=== PATIENT | female | born 1940 | race Caucasian/White ===

== ENCOUNTER 2020-02-22 15:46 | Inpatient (IN) ==
[2020-02-22] MEDS: Apixaban 5 MG TABLET PO SCH (20:46)
[2020-02-22] MEDS ORDERED: QUEtiapine Fumarate 25 MG TABLET PO SCH (21:00)
[2020-02-22] MEDS ORDERED: *HR* LORazepam 2 MG/ML VIAL IM STA (22:17)
[2020-02-23] MEDS ORDERED: Haloperidol Lactate 5 MG/ML VIAL IVP ONE (03:51)
[2020-02-23] MEDS: Ondansetron ODT 4 MG TAB.RAPDIS SL PRN (09:02)
[2020-02-23] MEDS: Apixaban 5 MG TABLET PO SCH ×2 (09:20→19:43)
[2020-02-23] MEDS: Furosemide 40 MG TABLET PO SCH ×2 (09:20→14:30)
[2020-02-23] MEDS: DilTIAZem CD (24hr) 240 MG CAP.ER.24H PO SCH (09:20)
[2020-02-23] MEDS: Metoprolol XL (24 HR) Succ 50 MG TAB.ER.24H PO SCH ×2 (09:20→14:35)
[2020-02-23 09:32] LABS: Basophils # 0.1 K/mcL (0.0-0.2); Basophils % 0.4 %; Hematocrit 47.1 % (35.3-44.9); Hemoglobin 15.6 g/dL (11.5-15.4); Immature Granulocytes % 3.5 % (0-4); Lymphocytes % 5.1 %; Mean Corpuscular HGB Conc 33.1 g/dL (31.6-35.5); Mean Corpuscular Hemoglobin 27.8 pg (28.0-33.3); Monocytes # 1.4 K/mcL (0.0-1.3); Monocytes % 7.6 %; Neutrophils # 15.6 K/mcL (1.6-8.9); Platelet Count 453 K/mcL (140-400); Red Blood Count 5.61 M/mcL (3.82-4.97); Red Cell Distribution Width 14.5 % (11.5-14.5); Segmented Neutrophils % 83.4 %; White Blood Count 18.7 K/mcL (4.3-11.1)
[2020-02-23 09:44] LABS: Alanine Aminotransferase 118 Units/L (7-52); Albumin 3.6 g/dL (3.5-5.7); Albumin/Globulin Ratio 1.3 (1.1-2.2); Alkaline Phosphatase 100 Units/L (34-104); Aspartate Amino Transferase 45 Units/L (13-39); BUN/Creatinine Ratio 30 (6-26); Blood Urea Nitrogen 23 mg/dL (8-23); Calcium 8.9 mg/dL (8.6-10.3); Carbon Dioxide 30 mEq/L (23-29); Chloride 93 mEq/L (98-107); Globulin 2.8 g/dL (2.4-3.5); Glucose 212 mg/dL (70-105); Magnesium 2.1 mg/dL (1.6-2.6); Osmolality,Calculated 286 (280-300); Potassium 4.1 mEq/L (3.5-5.1); Sodium 133 mEq/L (136-145); Total Protein 6.4 g/dL (6.4-8.9); eGFR For African Americans > 60 (> 60); eGFR For Non-African Americans > 60 (> 60)
[2020-02-23] MEDS ORDERED: *HR* Dextrose 50 % in Water (Vial) 50 ML VIAL IVP PRN (09:51)
[2020-02-23] MEDS ORDERED: Dextrose Gel 15 GM/37.5 ML TUBE PO PRN ×2 (09:51)
[2020-02-23] MEDS ORDERED: D5% in Water 1,000 ML IVC PRN (09:51)
[2020-02-23] MEDS: Insulin LISPRO 300 UNITS/3 ML VIAL SUBQ SCH ×3 (11:48→21:40)
[2020-02-23] MEDS: levoFLOXacin 750 MG TABLET PO SCH (14:29)
[2020-02-23] MEDS: dexAMETHasone 4 MG TABLET PO SCH (14:30)
[2020-02-23] MEDS ORDERED: Nystatin Cream 15 GM TUBE TP SCH (15:00)
[2020-02-23] MEDS: QUEtiapine Fumarate 25 MG TABLET PO SCH (19:43)
[2020-02-23] MEDS: Nystatin POWDER 30 GM BOTTLE TP SCH (19:45)
[2020-02-23] MEDS ORDERED: *HR* LORazepam 2 MG/ML VIAL IVP ONE (23:37)
[2020-02-24 06:24] LABS: Hematocrit 47.9 % (35.3-44.9); Hemoglobin 15.4 g/dL (11.5-15.4); Mean Corpuscular HGB Conc 32.2 g/dL (31.6-35.5); Mean Corpuscular Volume 87.1 fL (83.0-100.0); Mean Platelet Volume 10.4 fL (9.4-12.4); Platelet Count 356 K/mcL (140-400); Red Cell Distribution Width 14.8 % (11.5-14.5); White Blood Count 13.2 K/mcL (4.3-11.1)
[2020-02-24 07:16] LABS: Alanine Aminotransferase 118 Units/L (7-52); Albumin 3.4 g/dL (3.5-5.7); Albumin/Globulin Ratio 1.3 (1.1-2.2); Alkaline Phosphatase 98 Units/L (34-104); Aspartate Amino Transferase 41 Units/L (13-39); BUN/Creatinine Ratio 32 (6-26); Bilirubin,Total 0.9 mg/dL (0.3-1.0); Blood Urea Nitrogen 24 mg/dL (8-23); Calcium 8.8 mg/dL (8.6-10.3); Carbon Dioxide 24 mEq/L (23-29); Chloride 94 mEq/L (98-107); Globulin 2.7 g/dL (2.4-3.5); Glucose 214 mg/dL (70-105); Osmolality,Calculated 284 (280-300); Potassium 4.5 mEq/L (3.5-5.1); Sodium 132 mEq/L (136-145); Total Protein 6.1 g/dL (6.4-8.9); eGFR For African Americans > 60 (> 60); eGFR For Non-African Americans > 60 (> 60)
[2020-02-24] MEDS: Insulin LISPRO 300 UNITS/3 ML VIAL SUBQ SCH ×4 (08:48→20:24)
[2020-02-24] MEDS: Apixaban 5 MG TABLET PO SCH ×2 (08:50→20:17)
[2020-02-24] MEDS: levoFLOXacin 750 MG TABLET PO SCH (08:50)
[2020-02-24] MEDS: Nystatin POWDER 30 GM BOTTLE TP SCH ×2 (08:50→20:18)
[2020-02-24] MEDS: DilTIAZem CD (24hr) 240 MG CAP.ER.24H PO SCH (08:50)
[2020-02-24] MEDS: dexAMETHasone 4 MG TABLET PO SCH (08:51)
[2020-02-24] MEDS: Metoprolol XL (24 HR) Succ 50 MG TAB.ER.24H PO SCH (08:51)
[2020-02-24] MEDS: Furosemide 40 MG TABLET PO SCH ×2 (08:51→16:40)
[2020-02-24 09:57] LABS: Bilirubin,Urine Moderate (Negative); Blood,Urine Large (Negative); Clarity,Urine Cloudy (Clear); Color,Urine Red (Yellow); Glucose,Urine (UA) Normal (Normal); Ketones,Urine 15 mg/dL (Negative); Leukocyte Esterase,Urine Trace (Negative); Nitrite,Urine Negative (Negative); PH,Urine 5.5 pH Units (5.0-8.0); Protein,Urine >=300 mg/dL (Neg-Trace); Specific Gravity,Urine 1.015 (1.010-1.025); Urobilinogen,Urine Normal (Normal)
[2020-02-24 09:58] LABS: Bacteria,Urine Moderate per hpf (None-Few); Budding Yeast,Urine Moderate per hpf (None Seen); RBC,Urine TNTC per hpf (0-3); WBC,Urine TNTC per hpf (0-3)
[2020-02-24 10:50] LABS: C-Reactive Protein < 5 mg/L (Less than 10)
[2020-02-24 11:31] LABS: Ferritin 400 ng/mL (10-120)
[2020-02-24] MEDS: *HR* LORazepam 1 MG TABLET PO PRN (15:02)
[2020-02-24] MEDS: QUEtiapine Fumarate 25 MG TABLET PO SCH (20:17)
[2020-02-25] MEDS: Insulin LISPRO 300 UNITS/3 ML VIAL SUBQ SCH ×4 (09:55→19:35)
[2020-02-25] MEDS: *HR* LORazepam 1 MG TABLET PO PRN ×3 (09:56→22:57)
[2020-02-25] MEDS: DilTIAZem CD (24hr) 240 MG CAP.ER.24H PO SCH (09:56)
[2020-02-25] MEDS: levoFLOXacin 750 MG TABLET PO SCH (09:56)
[2020-02-25] MEDS: Metoprolol XL (24 HR) Succ 50 MG TAB.ER.24H PO SCH (09:56)
[2020-02-25] MEDS: dexAMETHasone 4 MG TABLET PO SCH (09:56)
[2020-02-25] MEDS: Apixaban 5 MG TABLET PO SCH ×2 (09:56→19:35)
[2020-02-25] MEDS: Furosemide 40 MG TABLET PO SCH ×2 (09:56→16:53)
[2020-02-25] MEDS: Nystatin POWDER 30 GM BOTTLE TP SCH ×2 (10:02→20:07)
[2020-02-25] MEDS: QUEtiapine Fumarate 25 MG TABLET PO SCH (19:35)
[2020-02-26] MEDS: *HR* LORazepam 1 MG TABLET PO PRN ×3 (09:15→20:46)
[2020-02-26] MEDS: Furosemide 40 MG TABLET PO SCH ×2 (09:15→17:16)
[2020-02-26] MEDS: Metoprolol XL (24 HR) Succ 50 MG TAB.ER.24H PO SCH (09:15)
[2020-02-26] MEDS: dexAMETHasone 4 MG TABLET PO SCH (09:15)
[2020-02-26] MEDS: levoFLOXacin 750 MG TABLET PO SCH (09:15)
[2020-02-26] MEDS: DilTIAZem CD (24hr) 240 MG CAP.ER.24H PO SCH (09:16)
[2020-02-26] MEDS: Apixaban 5 MG TABLET PO SCH ×2 (09:16→20:46)
[2020-02-26] MEDS: Insulin LISPRO 300 UNITS/3 ML VIAL SUBQ SCH ×4 (09:17→20:46)
[2020-02-26] MEDS: Nystatin POWDER 30 GM BOTTLE TP SCH ×2 (09:17→20:51)
[2020-02-26] MEDS: Acetaminophen 325 MG TABLET PO PRN (10:30)
[2020-02-26] MEDS ORDERED: *HR* LORazepam 1 MG TABLET PO ONE (14:19)
[2020-02-26] MEDS: QUEtiapine Fumarate 25 MG TABLET PO SCH (20:46)
[2020-02-27] MEDS: levoFLOXacin 750 MG TABLET PO SCH (09:06)
[2020-02-27] MEDS: Furosemide 40 MG TABLET PO SCH ×2 (09:06→16:40)
[2020-02-27] MEDS: Apixaban 5 MG TABLET PO SCH (09:06)
[2020-02-27] MEDS: DilTIAZem CD (24hr) 240 MG CAP.ER.24H PO SCH (09:06)
[2020-02-27] MEDS: Insulin LISPRO 300 UNITS/3 ML VIAL SUBQ SCH ×4 (09:07→20:38)
[2020-02-27] MEDS: Metoprolol XL (24 HR) Succ 50 MG TAB.ER.24H PO SCH (09:07)
[2020-02-27] MEDS: Nystatin POWDER 30 GM BOTTLE TP SCH ×2 (09:08→20:39)
[2020-02-27] MEDS: *HR* LORazepam 1 MG TABLET PO PRN ×2 (10:28→16:39)
[2020-02-27 11:27] LABS: Basophils # 0.1 K/mcL (0.0-0.2); Basophils % 0.3 %; Hematocrit 43.3 % (35.3-44.9); Hemoglobin 14.5 g/dL (11.5-15.4); Immature Granulocytes % 1.6 % (0-4); Lymphocytes # 1.2 K/mcL (0.6-4.6); Lymphocytes % 5.4 %; Mean Corpuscular HGB Conc 33.5 g/dL (31.6-35.5); Mean Corpuscular Hemoglobin 27.9 pg (28.0-33.3); Mean Corpuscular Volume 83.3 fL (83.0-100.0); Mean Platelet Volume 10.2 fL (9.4-12.4); Monocytes # 1.6 K/mcL (0.0-1.3); Monocytes % 7.3 %; Neutrophils # 18.5 K/mcL (1.6-8.9); Platelet Count 290 K/mcL (140-400); Red Cell Distribution Width 14.6 % (11.5-14.5); Segmented Neutrophils % 85.4 %; White Blood Count 21.7 K/mcL (4.3-11.1)
[2020-02-27 11:41] LABS: Albumin 3.2 g/dL (3.5-5.7); Albumin/Globulin Ratio 1.4 (1.1-2.2); BUN/Creatinine Ratio 33 (6-26); Bilirubin,Direct 0.3 mg/dL (0.0-0.2); Bilirubin,Indirect 0.8 mg/dL (0.0-1.0); Bilirubin,Total 1.1 mg/dL (0.3-1.0); Blood Urea Nitrogen 27 mg/dL (8-23); Calcium 8.5 mg/dL (8.6-10.3); Carbon Dioxide 28 mEq/L (23-29); Chloride 92 mEq/L (98-107); Globulin 2.3 g/dL (2.4-3.5); Glucose 220 mg/dL (70-105); Osmolality,Calculated 284 (280-300); Potassium 3.2 mEq/L (3.5-5.1); Sodium 131 mEq/L (136-145); Total Protein 5.5 g/dL (6.4-8.9); eGFR For African Americans > 60 (> 60); eGFR For Non-African Americans > 60 (> 60)
[2020-02-27 12:12] LABS: Bilirubin,Urine Negative (Negative); Blood,Urine Large (Negative); Clarity,Urine Slightly Cloudy (Clear); Color,Urine Pink (Yellow); Glucose,Urine (UA) Normal (Normal); Ketones,Urine Negative (Negative); Leukocyte Esterase,Urine Moderate (Negative); Nitrite,Urine Negative (Negative); Protein,Urine 30 mg/dL (Neg-Trace); Specific Gravity,Urine 1.015 (1.010-1.025); Urobilinogen,Urine Normal (Normal)
[2020-02-27 12:19] LABS: Bacteria,Urine Few per hpf (None-Few); Budding Yeast,Urine Moderate per hpf (None Seen); Mucus,Urine Few per lpf (None-Few); RBC,Urine 50-100 per hpf (0-3)
[2020-02-27] MEDS: QUEtiapine Fumarate 25 MG TABLET PO SCH (20:38)
[2020-02-28 06:57] LABS: Basophils # 0.1 K/mcL (0.0-0.2); Basophils % 0.3 %; Eosinophils % 0.1 %; Immature Granulocytes % 1.8 % (0-4); Lymphocytes # 1.1 K/mcL (0.6-4.6); Lymphocytes % 6.5 %; Mean Corpuscular HGB Conc 32.6 g/dL (31.6-35.5); Mean Corpuscular Hemoglobin 27.5 pg (28.0-33.3); Mean Corpuscular Volume 84.3 fL (83.0-100.0); Mean Platelet Volume 11.1 fL (9.4-12.4); Monocytes # 1.9 K/mcL (0.0-1.3); Monocytes % 10.8 %; Neutrophils # 14.1 K/mcL (1.6-8.9); Platelet Count 276 K/mcL (140-400); Red Cell Distribution Width 14.7 % (11.5-14.5); Segmented Neutrophils % 80.5 %; White Blood Count 17.5 K/mcL (4.3-11.1)
[2020-02-28 07:15] LABS: BUN/Creatinine Ratio 29 (6-26); Blood Urea Nitrogen 23 mg/dL (8-23); Calcium 8.3 mg/dL (8.6-10.3); Carbon Dioxide 31 mEq/L (23-29); Chloride 94 mEq/L (98-107); Glucose 165 mg/dL (70-105); Osmolality,Calculated 283 (280-300); Potassium 3.4 mEq/L (3.5-5.1); Sodium 133 mEq/L (136-145); eGFR For African Americans > 60 (> 60); eGFR For Non-African Americans > 60 (> 60)
[2020-02-28] MEDS: Insulin LISPRO 300 UNITS/3 ML VIAL SUBQ SCH ×4 (08:28→20:50)
[2020-02-28] MEDS: Nystatin POWDER 30 GM BOTTLE TP SCH ×2 (08:29→20:52)
[2020-02-28] MEDS: levoFLOXacin 750 MG TABLET PO SCH (08:29)
[2020-02-28] MEDS: *HR* LORazepam 1 MG TABLET PO PRN (08:29)
[2020-02-28] MEDS: Furosemide 40 MG TABLET PO SCH ×2 (08:29→16:00)
[2020-02-28] MEDS: Metoprolol XL (24 HR) Succ 50 MG TAB.ER.24H PO SCH (08:29)
[2020-02-28] MEDS: DilTIAZem CD (24hr) 240 MG CAP.ER.24H PO SCH (08:29)
[2020-02-28 10:42] LABS: Adenovirus F 40/41 PCR Not detected (Not detect); Astrovirus PCR Not detected (Not detect); C.difficile Toxin A/B Gene PCR Not detected (Not detect); Campylobacter by PCR Not detected (Not detect); Cryptosporidium by PCR Not detected (Not detect); Cyclospora cayetanensis PCR Not detected (Not detect); E. coli O157 by PCR Not detected (Not detect); Entamoeba histolytica PCR Not detected (Not detect); Enteroaggregative E.coli(EAEC) Not detected (Not detect); Enteropathogenic E.coli(EPEC) Not detected (Not detect); Enterotoxigenic E.coli (ETEC) Not detected (Not detect); Giardia lamblia PCR Not detected (Not detect); Norovirus GI/GII PCR Not detected (Not detect); Plesiomonas shigelloides PCR Not detected (Not detect); Rotavirus A PCR Not detected (Not detect); Salmonella PCR Not detected (Not detect); Sapovirus PCR Not detected (Not detect); Shig/EnteroinvasiveE coli EIEC Not detected (Not detect); Shigalike tox-prod E coli STEC Not detected (Not detect); Vibrio PCR Not detected (Not detect); Vibrio cholerae PCR Not detected (Not detect); Yersinia enterocolitica PCR Not detected (Not detect)
[2020-02-28] MEDS: Ondansetron ODT 4 MG TAB.RAPDIS SL PRN (16:00)
[2020-02-28] MEDS: Apixaban 5 MG TABLET PO SCH (20:50)
[2020-02-28] MEDS: QUEtiapine Fumarate 25 MG TABLET PO SCH (20:52)
[2020-02-29] MEDS: *HR* LORazepam 1 MG TABLET PO PRN ×2 (02:47→22:49)
[2020-02-29 07:40] LABS: Basophils # 0.1 K/mcL (0.0-0.2); Basophils % 0.2 %; Eosinophils # 0.1 K/mcL (0.0-0.6); Eosinophils % 0.2 %; Hematocrit 41.4 % (35.3-44.9); Hemoglobin 13.7 g/dL (11.5-15.4); Immature Granulocytes % 1.2 % (0-4); Lymphocytes # 0.8 K/mcL (0.6-4.6); Mean Corpuscular HGB Conc 33.1 g/dL (31.6-35.5); Mean Corpuscular Hemoglobin 28.1 pg (28.0-33.3); Mean Corpuscular Volume 84.8 fL (83.0-100.0); Mean Platelet Volume 10.3 fL (9.4-12.4); Monocytes % 6.9 %; Platelet Count 202 K/mcL (140-400); Red Blood Count 4.88 M/mcL (3.82-4.97); Red Cell Distribution Width 14.8 % (11.5-14.5); Segmented Neutrophils % 88.5 %; White Blood Count 26.7 K/mcL (4.3-11.1)
[2020-02-29 07:48] LABS: Monocytes # 1.8 K/mcL (0.0-1.3); Neutrophils # 23.6 K/mcL (1.6-8.9)
[2020-02-29 08:03] LABS: BUN/Creatinine Ratio 22 (6-26); Blood Urea Nitrogen 17 mg/dL (8-23); Calcium 8.1 mg/dL (8.6-10.3); Carbon Dioxide 29 mEq/L (23-29); Chloride 93 mEq/L (98-107); Glucose 192 mg/dL (70-105); Osmolality,Calculated 277 (280-300); Potassium 3.6 mEq/L (3.5-5.1); Sodium 130 mEq/L (136-145); eGFR For African Americans > 60 (> 60); eGFR For Non-African Americans > 60 (> 60)
[2020-02-29 08:28] LABS: Platelet Estimate Normal (Normal)
[2020-02-29] MEDS: Nystatin POWDER 30 GM BOTTLE TP SCH ×2 (08:43→20:20)
[2020-02-29] MEDS: Metoprolol XL (24 HR) Succ 50 MG TAB.ER.24H PO SCH (08:43)
[2020-02-29] MEDS: Furosemide 40 MG TABLET PO SCH ×2 (08:43→18:01)
[2020-02-29] MEDS: Insulin LISPRO 300 UNITS/3 ML VIAL SUBQ SCH ×4 (08:44→20:20)
[2020-02-29] MEDS: DilTIAZem CD (24hr) 240 MG CAP.ER.24H PO SCH (08:44)
[2020-02-29] MEDS: Apixaban 5 MG TABLET PO SCH ×2 (10:52→20:21)
[2020-02-29] MEDS ORDERED: Fluconazole 100 MG TABLET PO SCH (14:38)
[2020-02-29] MEDS ORDERED: *HR* LORazepam 0.5 MG TABLET PO ONE (14:58)
[2020-02-29] MEDS: Lactobacillus 1 EACH CAP.SPRINK PO SCH (15:48)
[2020-02-29 15:57] LABS: Bilirubin,Urine Negative (Negative); Blood,Urine Large (Negative); Clarity,Urine Cloudy (Clear); Glucose,Urine (UA) Normal (Normal); Ketones,Urine Negative (Negative); Leukocyte Esterase,Urine Large (Negative); Nitrite,Urine Negative (Negative); Protein,Urine 100 mg/dL (Neg-Trace); Urobilinogen,Urine Normal (Normal)
[2020-02-29] MEDS: cefTRIAXone 2,000 MG in 0.9 % Sodium Chloride Mini Bag 100 ML IVPB SCH (16:29)
[2020-02-29 16:34] LABS: Color,Urine Amber (Yellow)
[2020-02-29 16:37] LABS: Bacteria,Urine Few per hpf (None-Few); Budding Yeast,Urine Many per hpf (None Seen); RBC,Urine 15-30 per hpf (0-3); Squamous Epithelial Cell,Urine Few per hpf (None-Few); WBC,Urine 50-100 per hpf (0-3)
[2020-02-29] MEDS: Fluconazole 100 MG TABLET PO SCH (18:01)
[2020-02-29] MEDS: QUEtiapine Fumarate 25 MG TABLET PO SCH (20:21)
[2020-03-01 05:56] LABS: Basophils % 0.2 %; Eosinophils # 0.1 K/mcL (0.0-0.6); Eosinophils % 0.5 %; Hematocrit 39.6 % (35.3-44.9); Hemoglobin 13.3 g/dL (11.5-15.4); Immature Granulocytes % 0.9 % (0-4); Lymphocytes # 0.8 K/mcL (0.6-4.6); Lymphocytes % 3.9 %; Mean Corpuscular HGB Conc 33.6 g/dL (31.6-35.5); Mean Corpuscular Hemoglobin 28.4 pg (28.0-33.3); Mean Corpuscular Volume 84.6 fL (83.0-100.0); Mean Platelet Volume 11.5 fL (9.4-12.4); Monocytes # 1.6 K/mcL (0.0-1.3); Monocytes % 7.9 %; Neutrophils # 17.2 K/mcL (1.6-8.9); Platelet Count 189 K/mcL (140-400); Red Blood Count 4.68 M/mcL (3.82-4.97); Red Cell Distribution Width 14.9 % (11.5-14.5); Segmented Neutrophils % 86.6 %; White Blood Count 19.8 K/mcL (4.3-11.1)
[2020-03-01 06:17] LABS: BUN/Creatinine Ratio 19 (6-26); Blood Urea Nitrogen 14 mg/dL (8-23); Calcium 7.8 mg/dL (8.6-10.3); Carbon Dioxide 24 mEq/L (23-29); Chloride 94 mEq/L (98-107); Glucose 200 mg/dL (70-105); Osmolality,Calculated 272 (280-300); Potassium 3.3 mEq/L (3.5-5.1); Sodium 128 mEq/L (136-145); eGFR For African Americans > 60 (> 60); eGFR For Non-African Americans > 60 (> 60)
[2020-03-01] MEDS: Furosemide 40 MG TABLET PO SCH (07:25)
[2020-03-01] MEDS: Metoprolol XL (24 HR) Succ 50 MG TAB.ER.24H PO SCH (07:25)
[2020-03-01] MEDS: *HR* LORazepam 1 MG TABLET PO PRN ×2 (07:26→21:00)
[2020-03-01] MEDS: Acetaminophen 325 MG TABLET PO PRN (07:26)
[2020-03-01] MEDS: Lactobacillus 1 EACH CAP.SPRINK PO SCH (07:26)
[2020-03-01] MEDS: Apixaban 5 MG TABLET PO SCH ×2 (07:27→21:00)
[2020-03-01] MEDS: Insulin LISPRO 300 UNITS/3 ML VIAL SUBQ SCH ×4 (07:42→20:53)
[2020-03-01 08:47] LABS: C-Reactive Protein 118 mg/L (Less than 10)
[2020-03-01 09:05] LABS: Ferritin 932 ng/mL (10-120)
[2020-03-01] MEDS: DilTIAZem CD (24hr) 240 MG CAP.ER.24H PO SCH (12:19)
[2020-03-01] MEDS: Nystatin POWDER 30 GM BOTTLE TP SCH ×2 (12:19→20:59)
[2020-03-01] MEDS: Fluconazole 100 MG TABLET PO SCH ×2 (16:03→16:24)
[2020-03-01] MEDS: 0.9 % Sodium Chloride 1,000 ML IVC SCH ×3 (16:04→23:56)
[2020-03-01] MEDS: cefTRIAXone 2,000 MG in 0.9 % Sodium Chloride Mini Bag 100 ML IVPB SCH (16:05)
[2020-03-01] MEDS: QUEtiapine Fumarate 25 MG TABLET PO SCH (21:00)
[2020-03-02] MEDS: DilTIAZem CD (24hr) 240 MG CAP.ER.24H PO SCH (08:16)
[2020-03-02] MEDS: 0.9 % Sodium Chloride 1,000 ML IVC SCH ×2 (08:16→16:39)
[2020-03-02] MEDS: Lactobacillus 1 EACH CAP.SPRINK PO SCH (08:16)
[2020-03-02] MEDS: Metoprolol XL (24 HR) Succ 50 MG TAB.ER.24H PO SCH (08:16)
[2020-03-02] MEDS: Apixaban 5 MG TABLET PO SCH (08:16)
[2020-03-02] MEDS: Fluconazole 100 MG TABLET PO SCH (08:16)
[2020-03-02] MEDS: Insulin LISPRO 300 UNITS/3 ML VIAL SUBQ SCH ×4 (08:17→21:05)
[2020-03-02] MEDS: Nystatin POWDER 30 GM BOTTLE TP SCH ×2 (08:22→22:22)
[2020-03-02 08:30] LABS: Basophils % 0.1 %; Eosinophils # 0.1 K/mcL (0.0-0.6); Eosinophils % 0.8 %; Hematocrit 35.8 % (35.3-44.9); Hemoglobin 11.6 g/dL (11.5-15.4); Immature Granulocytes % 0.8 % (0-4); Lymphocytes # 0.8 K/mcL (0.6-4.6); Lymphocytes % 7.1 %; Mean Corpuscular HGB Conc 32.4 g/dL (31.6-35.5); Mean Corpuscular Hemoglobin 27.5 pg (28.0-33.3); Mean Corpuscular Volume 84.8 fL (83.0-100.0); Mean Platelet Volume 11.1 fL (9.4-12.4); Monocytes # 1.1 K/mcL (0.0-1.3); Neutrophils # 9.7 K/mcL (1.6-8.9); Platelet Count 141 K/mcL (140-400); Red Blood Count 4.22 M/mcL (3.82-4.97); Red Cell Distribution Width 15.1 % (11.5-14.5); Segmented Neutrophils % 82.2 %; White Blood Count 11.8 K/mcL (4.3-11.1)
[2020-03-02 08:50] LABS: BUN/Creatinine Ratio 18 (6-26); Blood Urea Nitrogen 9 mg/dL (8-23); Calcium 7.4 mg/dL (8.6-10.3); Carbon Dioxide 23 mEq/L (23-29); Chloride 104 mEq/L (98-107); Glucose 159 mg/dL (70-105); Osmolality,Calculated 280 (280-300); Potassium 3.3 mEq/L (3.5-5.1); Sodium 134 mEq/L (136-145); eGFR For African Americans > 60 (> 60); eGFR For Non-African Americans > 60 (> 60)
[2020-03-02] MEDS: Furosemide 40 MG TABLET PO SCH (16:39)
[2020-03-02] MEDS: cefTRIAXone 2,000 MG in 0.9 % Sodium Chloride Mini Bag 100 ML IVPB SCH (16:51)
[2020-03-02] MEDS ORDERED: Morphine Sulfate 2 MG/ML SYRINGE IVP ONE (20:06)
[2020-03-02] MEDS: *HR* LORazepam 1 MG TABLET PO PRN (22:22)
[2020-03-02] MEDS: QUEtiapine Fumarate 25 MG TABLET PO SCH (22:22)
[2020-03-03] MEDS: Metoprolol XL (24 HR) Succ 50 MG TAB.ER.24H PO SCH (09:38)
[2020-03-03] MEDS: *HR* LORazepam 1 MG TABLET PO PRN ×2 (09:38→22:13)
[2020-03-03] MEDS: Nystatin POWDER 30 GM BOTTLE TP SCH ×2 (09:39→22:14)
[2020-03-03] MEDS: Lactobacillus 1 EACH CAP.SPRINK PO SCH (09:39)
[2020-03-03] MEDS: DilTIAZem CD (24hr) 240 MG CAP.ER.24H PO SCH (09:39)
[2020-03-03] MEDS: Furosemide 40 MG TABLET PO SCH (09:39)
[2020-03-03] MEDS: Insulin LISPRO 300 UNITS/3 ML VIAL SUBQ SCH ×4 (09:45→22:01)
[2020-03-03] MEDS: Fluconazole 100 MG TABLET PO SCH (09:49)
[2020-03-03 10:06] LABS: Basophils % 0.1 %; Eosinophils # 0.1 K/mcL (0.0-0.6); Hematocrit 35.6 % (35.3-44.9); Hemoglobin 11.7 g/dL (11.5-15.4); Lymphocytes # 0.7 K/mcL (0.6-4.6); Lymphocytes % 8.5 %; Mean Corpuscular HGB Conc 32.9 g/dL (31.6-35.5); Mean Corpuscular Hemoglobin 28.3 pg (28.0-33.3); Mean Platelet Volume 10.7 fL (9.4-12.4); Monocytes # 0.8 K/mcL (0.0-1.3); Monocytes % 9.5 %; Neutrophils # 6.6 K/mcL (1.6-8.9); Platelet Count 129 K/mcL (140-400); Red Blood Count 4.14 M/mcL (3.82-4.97); Red Cell Distribution Width 15.4 % (11.5-14.5); Segmented Neutrophils % 79.9 %; White Blood Count 8.2 K/mcL (4.3-11.1)
[2020-03-03 10:36] LABS: BUN/Creatinine Ratio 9 (6-26); Blood Urea Nitrogen 4 mg/dL (8-23); Calcium 7.5 mg/dL (8.6-10.3); Carbon Dioxide 25 mEq/L (23-29); Chloride 105 mEq/L (98-107); Glucose 190 mg/dL (70-105); Osmolality,Calculated 286 (280-300); Potassium 3.5 mEq/L (3.5-5.1); Sodium 137 mEq/L (136-145); eGFR For African Americans > 60 (> 60); eGFR For Non-African Americans > 60 (> 60)
[2020-03-03] MEDS: cefTRIAXone 2,000 MG in 0.9 % Sodium Chloride Mini Bag 100 ML IVPB SCH (17:23)
[2020-03-03] MEDS: QUEtiapine Fumarate 25 MG TABLET PO SCH (22:13)
[2020-03-04] MEDS: Insulin LISPRO 300 UNITS/3 ML VIAL SUBQ SCH ×4 (07:30→20:49)
[2020-03-04] MEDS: Nystatin POWDER 30 GM BOTTLE TP SCH ×2 (09:26→20:47)
[2020-03-04] MEDS: Fluconazole 100 MG TABLET PO SCH (09:27)
[2020-03-04] MEDS: Lactobacillus 1 EACH CAP.SPRINK PO SCH (09:27)
[2020-03-04] MEDS: DilTIAZem CD (24hr) 240 MG CAP.ER.24H PO SCH (09:27)
[2020-03-04] MEDS: Metoprolol XL (24 HR) Succ 50 MG TAB.ER.24H PO SCH (09:27)
[2020-03-04] MEDS: *HR* LORazepam 1 MG TABLET PO PRN ×2 (16:38→23:41)
[2020-03-04] MEDS: QUEtiapine Fumarate 25 MG TABLET PO SCH (20:45)
[2020-03-05] MEDS: Furosemide 40 MG TABLET PO SCH ×2 (07:47→16:31)
[2020-03-05] MEDS: Insulin LISPRO 300 UNITS/3 ML VIAL SUBQ SCH ×4 (07:51→20:50)
[2020-03-05] MEDS: Lactobacillus 1 EACH CAP.SPRINK PO SCH (09:28)
[2020-03-05] MEDS: Metoprolol XL (24 HR) Succ 50 MG TAB.ER.24H PO SCH (09:28)
[2020-03-05] MEDS: DilTIAZem CD (24hr) 240 MG CAP.ER.24H PO SCH (09:28)
[2020-03-05] MEDS: Nystatin POWDER 30 GM BOTTLE TP SCH ×2 (09:32→20:49)
[2020-03-05] MEDS: *HR* LORazepam 1 MG TABLET PO PRN (16:31)
[2020-03-05] MEDS: QUEtiapine Fumarate 25 MG TABLET PO SCH (20:49)
[2020-03-06] MEDS: *HR* LORazepam 1 MG TABLET PO PRN ×2 (00:09→22:12)
[2020-03-06] MEDS ORDERED: Haloperidol Lactate 5 MG/ML VIAL IVP ONE (00:38)
[2020-03-06] MEDS: Metoprolol XL (24 HR) Succ 50 MG TAB.ER.24H PO SCH (08:52)
[2020-03-06] MEDS: Lactobacillus 1 EACH CAP.SPRINK PO SCH (08:52)
[2020-03-06] MEDS: Insulin LISPRO 300 UNITS/3 ML VIAL SUBQ SCH ×4 (08:53→20:36)
[2020-03-06] MEDS: Nystatin POWDER 30 GM BOTTLE TP SCH ×2 (08:53→20:40)
[2020-03-06] MEDS: DilTIAZem CD (24hr) 240 MG CAP.ER.24H PO SCH (08:53)
[2020-03-06] MEDS: Furosemide 40 MG TABLET PO SCH ×2 (08:53→17:47)
[2020-03-06] MEDS: Amoxicillin/Clavulanate 500 MG TABLET PO SCH (17:47)
[2020-03-06] MEDS: QUEtiapine Fumarate 25 MG TABLET PO SCH (20:37)
[2020-03-06] MEDS: Apixaban 5 MG TABLET PO SCH (20:37)
[2020-03-06] MEDS: Ondansetron ODT 4 MG TAB.RAPDIS SL PRN (23:04)
[2020-03-07] MEDS: Insulin LISPRO 300 UNITS/3 ML VIAL SUBQ SCH ×4 (08:14→20:08)
[2020-03-07] MEDS: Nystatin POWDER 30 GM BOTTLE TP SCH ×2 (08:14→20:12)
[2020-03-07] MEDS: Metoprolol XL (24 HR) Succ 50 MG TAB.ER.24H PO SCH (08:15)
[2020-03-07] MEDS: Lactobacillus 1 EACH CAP.SPRINK PO SCH (08:15)
[2020-03-07] MEDS: Apixaban 5 MG TABLET PO SCH ×2 (08:15→20:12)
[2020-03-07] MEDS: DilTIAZem CD (24hr) 240 MG CAP.ER.24H PO SCH (08:15)
[2020-03-07] MEDS: Furosemide 40 MG TABLET PO SCH ×2 (08:15→16:33)
[2020-03-07] MEDS: Amoxicillin/Clavulanate 500 MG TABLET PO SCH ×2 (08:15→16:33)
[2020-03-07] MEDS: QUEtiapine Fumarate 25 MG TABLET PO SCH (20:12)
[2020-03-07] MEDS: *HR* LORazepam 1 MG TABLET PO PRN (20:12)
[2020-03-08] MEDS: Acetaminophen 325 MG TABLET PO PRN (04:33)
[2020-03-08] MEDS: *HR* LORazepam 1 MG TABLET PO PRN ×2 (04:33→20:05)
[2020-03-08] MEDS: Insulin LISPRO 300 UNITS/3 ML VIAL SUBQ SCH ×4 (09:18→20:05)
[2020-03-08] MEDS: Furosemide 40 MG TABLET PO SCH ×2 (10:38→16:36)
[2020-03-08] MEDS: Metoprolol XL (24 HR) Succ 50 MG TAB.ER.24H PO SCH (10:38)
[2020-03-08] MEDS: Apixaban 5 MG TABLET PO SCH ×2 (10:38→20:03)
[2020-03-08] MEDS: Amoxicillin/Clavulanate 500 MG TABLET PO SCH ×2 (10:38→16:36)
[2020-03-08] MEDS: DilTIAZem CD (24hr) 240 MG CAP.ER.24H PO SCH (10:39)
[2020-03-08] MEDS: Nystatin POWDER 30 GM BOTTLE TP SCH ×2 (10:39→20:04)
[2020-03-08] MEDS: Lactobacillus 1 EACH CAP.SPRINK PO SCH (10:39)
[2020-03-08] MEDS: QUEtiapine Fumarate 25 MG TABLET PO SCH (20:05)
[2020-03-09] MEDS: Lactobacillus 1 EACH CAP.SPRINK PO SCH (09:18)
[2020-03-09] MEDS: Amoxicillin/Clavulanate 500 MG TABLET PO SCH ×2 (09:19→17:14)
[2020-03-09] MEDS: DilTIAZem CD (24hr) 240 MG CAP.ER.24H PO SCH (09:19)
[2020-03-09] MEDS: Metoprolol XL (24 HR) Succ 50 MG TAB.ER.24H PO SCH (09:19)
[2020-03-09] MEDS: Apixaban 5 MG TABLET PO SCH ×2 (09:19→20:01)
[2020-03-09] MEDS: Furosemide 40 MG TABLET PO SCH ×2 (09:19→17:14)
[2020-03-09] MEDS: Nystatin POWDER 30 GM BOTTLE TP SCH ×2 (09:21→22:47)
[2020-03-09] MEDS: Insulin LISPRO 300 UNITS/3 ML VIAL SUBQ SCH ×4 (11:14→20:45)
[2020-03-09] MEDS: QUEtiapine Fumarate 25 MG TABLET PO SCH (20:04)
[2020-03-10] MEDS: Furosemide 40 MG TABLET PO SCH ×2 (08:57→16:39)
[2020-03-10] MEDS: Amoxicillin/Clavulanate 500 MG TABLET PO SCH ×2 (08:57→16:39)
[2020-03-10] MEDS: DilTIAZem CD (24hr) 240 MG CAP.ER.24H PO SCH (08:58)
[2020-03-10] MEDS: Lactobacillus 1 EACH CAP.SPRINK PO SCH (08:58)
[2020-03-10] MEDS: Metoprolol XL (24 HR) Succ 50 MG TAB.ER.24H PO SCH (08:58)
[2020-03-10] MEDS: Apixaban 5 MG TABLET PO SCH ×2 (08:58→21:15)
[2020-03-10] MEDS: Insulin LISPRO 300 UNITS/3 ML VIAL SUBQ SCH ×4 (09:01→21:16)
[2020-03-10] MEDS: Nystatin POWDER 30 GM BOTTLE TP SCH ×2 (09:11→21:17)
[2020-03-10] MEDS: *HR* LORazepam 1 MG TABLET PO PRN (21:15)
[2020-03-10] MEDS: QUEtiapine Fumarate 25 MG TABLET PO SCH (21:15)
[2020-03-11] MEDS: Insulin LISPRO 300 UNITS/3 ML VIAL SUBQ SCH ×4 (07:32→22:07)
[2020-03-11] MEDS: Furosemide 40 MG TABLET PO SCH ×2 (09:18→17:18)
[2020-03-11] MEDS: Lactobacillus 1 EACH CAP.SPRINK PO SCH (09:18)
[2020-03-11] MEDS: DilTIAZem CD (24hr) 240 MG CAP.ER.24H PO SCH (09:18)
[2020-03-11] MEDS: Metoprolol XL (24 HR) Succ 50 MG TAB.ER.24H PO SCH (09:18)
[2020-03-11] MEDS: Apixaban 5 MG TABLET PO SCH ×2 (09:18→22:06)
[2020-03-11] MEDS: Nystatin POWDER 30 GM BOTTLE TP SCH ×2 (09:19→22:06)
[2020-03-11] MEDS: Amoxicillin/Clavulanate 500 MG TABLET PO SCH ×2 (09:21→17:18)
[2020-03-11] MEDS: QUEtiapine Fumarate 25 MG TABLET PO SCH (22:06)
[2020-03-11] MEDS: *HR* LORazepam 1 MG TABLET PO PRN (22:06)
[2020-03-12 08:00] VITALS: BP 106/50
[2020-03-12] MEDS: Insulin LISPRO 300 UNITS/3 ML VIAL SUBQ SCH (08:54)
[2020-03-12] MEDS: Amoxicillin/Clavulanate 500 MG TABLET PO SCH (09:03)
[2020-03-12] MEDS: Apixaban 5 MG TABLET PO SCH (09:03)
[2020-03-12] MEDS: Furosemide 40 MG TABLET PO SCH (09:03)
[2020-03-12] MEDS: Lactobacillus 1 EACH CAP.SPRINK PO SCH (09:03)
[2020-03-12] MEDS: Metoprolol XL (24 HR) Succ 50 MG TAB.ER.24H PO SCH (09:03)
[2020-03-12] MEDS: DilTIAZem CD (24hr) 240 MG CAP.ER.24H PO SCH (09:04)
[2020-03-12] MEDS: Nystatin POWDER 30 GM BOTTLE TP SCH (09:04)
== END 2020-03-12 13:02 | disposition home or self-care (01) | DRG 177 ==
LOC: INPPIK 17:51
PROVIDERS: ADMIT Family Medicine; ATTEND Family Medicine